=== PATIENT | female | born 2000 | race Asian ===

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

== ENCOUNTER 2019-05-05 06:28 | Emergency (ER) | payer BC ==
[~2019-05-05] VITALS: Ht 157.5 cm; Wt 54.4 kg
[2019-05-05 06:33] VITALS: BP 119/79
--- NOTE | 2019-05-05 06:53 | NUR ---
DR. IRWIN AT BEDSIDE FOR EVAL.
[2019-05-05] MEDS ORDERED: KETOROLAC TROMETHAMINE INJ 60 MG/2 ML VIAL IM ONE (07:00)
[2019-05-05] MEDS ORDERED: KETOROLAC TROMETHAMINE INJ 30 MG/ML VIAL ONE (07:02)
== END 2019-05-05 07:14 | disposition home or self-care (01) ==
LOC: ER 06:29
DX: J06.9 Acute upper respiratory infection, unspecified (principal)
CPT/HCPCS: 96372; 99283; J1885

== ENCOUNTER 2019-08-08 11:12 | Outpatient (CLI) | payer BC | END 2019-08-08 23:59 | disposition home or self-care (01) | LOC: LAB 11:12 | PROVIDERS: ATTEND Family Medicine | DX: Z11.59 Encounter for screening for other viral diseases (principal) | CPT/HCPCS: 36415; 86317 ==

== ENCOUNTER 2020-03-15 13:36 | Emergency (ER) | payer BC ==
[~2020-03-15] VITALS: Ht 157.5 cm; Wt 54.4 kg
[2020-03-15 13:45] VITALS: BP 126/74
--- NOTE | 2020-03-15 14:38 | NUR ---
Patient discharged to home in stable condition. Written and verbal after care instructions given. Patient verbalizes understanding of instruction. Rx provided, explained medication administration. No distress noted.
== END 2020-03-15 14:40 | disposition home or self-care (01) ==
LOC: ER 13:40
DX: B37.3 Candidiasis of vulva and vagina (principal)
CPT/HCPCS: 82962-TC

== ENCOUNTER 2020-03-18 12:16 | Outpatient (CLI) | payer BC | END 2020-03-18 23:59 | disposition home or self-care (01) | LOC: LAB 12:16 | PROVIDERS: ATTEND Family Medicine | DX: R21 Rash and other nonspecific skin eruption (principal) | CPT/HCPCS: 86694; 86695; 86696 ==

== ENCOUNTER 2020-07-14 09:41 | Outpatient (CLI) | payer BC ==
[2020-07-14 10:29] LABS: BASOPHILS % (AUTO) 0.6 % (0.0-2.0); EOSINOPHILS % (AUTO) 2.2 % (0.0-6.0); HEMATOCRIT 41 % (33-45); HEMOGLOBIN 13.5 g/dL (11.5-14.8); LYMPHOCYTES # (AUTO) 1.8 /CMM (0.8-4.8); LYMPHOCYTES % (AUTO) 23.1 % (20.0-44.0); MEAN CORPUSCULAR HGB CONC 33 g/dl (31.0-36.0); MEAN CORPUSCULAR VOLUME 89 fL (82-100); MONOCYTES # (AUTO) 0.4 /CMM (0.1-1.30); MONOCYTES % (AUTO) 5.1 % (2.0-12.0); NEUTROPHILS # (AUTO) 5.3 /CMM (1.8-8.9); PLATELET COUNT (AUTO) 296 /CMM (150-450); RED BLOOD CELL COUNT(AUTO) 4.62 MIL/uL (4.0-5.2); WHITE BLOOD COUNT (AUTO) 7.7 K/uL (4.3-11.0)
[2020-07-14 10:42] LABS: ALBUMIN 4.4 g/dL (3.4-5.0); BILIRUBIN,TOTAL 0.5 mg/dL (0.2-1.0); CALCIUM, SERUM 8.8 mg/dL (8.5-10.1); CREATININE 0.7 mg/dL (0.6-1.3); TOTAL PROTEIN, SERUM 7.7 g/dL (6.4-8.2)
[2020-07-14 12:36] LABS: THYROID STIMULATING HORMONE 1.767 uIU/mL (0.358-3.74)
== END 2020-07-14 23:59 | disposition home or self-care (01) ==
LOC: LAB 09:41
PROVIDERS: ATTEND Family Medicine
DX: Z11.1 Encounter for screening for respiratory tuberculosis (principal); Z00.01 Encounter for general adult medical examination with abnormal findings
CPT/HCPCS: 36415; 80053-TC; 80061-TC; 84443-TC; 85025-TC; 86480

== ENCOUNTER 2021-09-09 10:59 | Emergency (ER) | payer SELFPAY ==
[~2021-09-09] VITALS: Ht 157.5 cm; Wt 55.9 kg
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
--- NOTE | 2021-09-09 11:40 | NUR ---
AT BED SIDE
--- NOTE | 2021-09-09 12:27 | NUR ---
URINE SAMPLE FOR TEST SENT TO LAB
[2021-09-09] MEDS ORDERED: ACETAMINOPHEN ES 500 MG TABLET PO ONE (12:30)
[2021-09-09] MEDS ORDERED: ACETAMINOPHEN ES 500 MG TABLET ONE (12:46)
--- NOTE | 2021-09-09 13:28 | NUR ---
THE PATIENT IS TAKEN TO CT VIA [facility]
[2021-09-09] MEDS ORDERED: IV NS 0.9% 250 ML IV ONE (13:33)
[2021-09-09] MEDS ORDERED: CT SWABBABLE VALVE TRANS SET 1 EA INFUS.SET MC ONE (13:33)
[2021-09-09] MEDS ORDERED: IOHEXOL-300 100 ML VIAL IV ONE (13:33)
[2021-09-09] MEDS ORDERED: IBUP-1955 PO (15:06)
[2021-09-09] MEDS ORDERED: CYCL10TA9 PO (15:06)
--- NOTE | 2021-09-09 15:15 | NUR ---
IV removed. Catheter intact and site benign. Pressure and 4x4 applied to site. No bleeding noted.Patient discharged to home in stable condition. Written and verbal after care instructions given. Patient verbalizes understanding of instruction.
[2021-09-09 15:28] VITALS: BP 120/80
[2021-09-09] MEDS ORDERED: KETOROLAC TROMETHAMINE INJ 30 MG/ML VIAL IV ONE (15:30)
== END 2021-09-09 15:15 | disposition home or self-care (01) ==
LOC: ER 11:10
DX: R51.9 Headache, unspecified (principal); R10.84 Generalized abdominal pain; V49.49XA Driver injured in collision with other motor vehicles in traffic accident, initial encounter; Y93.89 Activity, other specified; Y92.413 State road as the place of occurrence of the external cause; Y99.8 Other external cause status
CPT/HCPCS: 70450; 71260; 72125; 74177; 84703; 99285; J7050; Q9967

== ENCOUNTER → 2022-09-02 | Emergency (ER) | payer BC ==
[~2022-09-02] VITALS: Ht 160 cm; Wt 56.7 kg
[~2022-09-02] MED LIST: CARI350T PO; CARISOPRODOL 350 MG TABLET ONE; CARISOPRODOL 350 MG TABLET PO ONE; CYCL10TA9 PO; HYDR-3972 PO; HYDR-3976 PO; HYDR-3980 PO; HYDROCODONE/APAP 5/325MG TABLET ONE; HYDROCODONE/APAP 5/325MG TABLET PO ONE; IBUP-1955 PO; IBUP-1957 PO; predniSONE 20 MG TABLET ONE; predniSONE 50 MG TABLET PO ONE
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
--- NOTE | 2022-09-02 02:19 | NUR ---
DR AALIYAH MOBLEY AT PT'S BEDSIDE
--- NOTE | 2022-09-02 02:35 | NUR ---
PT SIGNED WAIVER FORM, VERBALIZED UNDERSTANDING. PARADI OPERATOR AWARE
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
--- NOTE | 2022-09-02 02:54 | NUR ---
PT TAKEN TO CT VIA [facility]
[2022-09-02 05:05] VITALS: BP 121/74
--- NOTE | 2022-09-02 05:05 | NUR ---
Patient discharged to home in stable condition. RX Written and verbal after care instructions given. Patient verbalizes understanding of instruction.
== END | disposition home or self-care (01) ==
LOC: ER 01:43
DX: S13.4XXA Sprain of ligaments of cervical spine, initial encounter (principal); S29.012A Strain of muscle and tendon of back wall of thorax, initial encounter; S20.213A Contusion of bilateral front wall of thorax, initial encounter; V89.2XXA Person injured in unspecified motor-vehicle accident, traffic, initial encounter; Y93.89 Activity, other specified; Y92.89 Other specified places as the place of occurrence of the external cause; Y99.8 Other external cause status
CPT/HCPCS: 70450-TC; 71045-TC; 72125-TC; 72128-TC

== ENCOUNTER 2023-09-20 19:07 | Emergency (ER) | payer BC ==
[~2023-09-20] VITALS: Ht 160 cm; Wt 59.4 kg
[~2023-09-20 19:07] MED LIST changes: -CARISOPRODOL 350 MG TABLET ONE; -CARISOPRODOL 350 MG TABLET PO ONE; -HYDR-3972 PO; -HYDR-3976 PO; -HYDROCODONE/APAP 5/325MG TABLET ONE; -HYDROCODONE/APAP 5/325MG TABLET PO ONE; -predniSONE 20 MG TABLET ONE; -predniSONE 50 MG TABLET PO ONE
[2023-09-20 19:41] LABS: BASOPHILS % (AUTO) 0.3 % (0.0-2.0); EOSINOPHILS % (AUTO) 0.3 % (0.0-6.0); HEMATOCRIT 40 % (33-45); HEMOGLOBIN 13.5 g/dL (11.5-14.8); LYMPHOCYTES # (AUTO) 0.4 K/uL (0.8-4.8); MEAN CORPUSCULAR HEMOGLOBIN 29 PG (26.0-33.0); MEAN CORPUSCULAR HGB CONC 34 g/dl (31.0-36.0); MEAN CORPUSCULAR VOLUME 87 fL (82-100); MONOCYTES # (AUTO) 0.6 K/uL (0.1-1.30); MONOCYTES % (AUTO) 8.8 % (2.0-12.0); NEUTROPHILS # (AUTO) 5.9 K/uL (1.8-8.9); NEUTROPHILS % (AUTO) 84.6 % (43.0-81.0); PLATELET COUNT (AUTO) 204 K/uL (150-450); RED BLOOD CELL COUNT(AUTO) 4.65 MIL/uL (4.0-5.2); RED CELL DISTRIBUTION WIDTH 12.9 % (11.5-15.0)
[2023-09-20] MEDS ORDERED: ONDANSETRON HCL/PF 4 MG/2 ML VIAL ONE (19:57)
[2023-09-20] MEDS ORDERED: MORPHINE SULFATE INJ 2 MG/ML DISP.SYRIN ONE (19:57)
[2023-09-20] MEDS ORDERED: FAMOTIDINE/PF INJ 20 MG/2 ML VIAL IV ONE (19:57)
[2023-09-20 19:59] LABS: ALBUMIN 4.4 g/dL (3.4-5.0); BILIRUBIN,DIRECT 0.3 mg/dL (0.0-0.2); BILIRUBIN,TOTAL 1.3 mg/dL (0.2-1.0); CALCIUM, SERUM 8.4 mg/dL (8.5-10.1); CREATININE 0.7 mg/dL (0.6-1.3); POTASSIUM 3.4 mmol/L (3.5-5.1); TOTAL PROTEIN, SERUM 7.7 g/dL (6.4-8.2)
[2023-09-20] MEDS: ONDANSETRON HCL/PF 4 MG/2 ML VIAL IVP ONE (20:00)
[2023-09-20] MEDS: IV NS 0.9% 1,000 ML BAG IV ONE (20:01)
[2023-09-20] MEDS: MORPHINE SULFATE INJ 2 MG/ML DISP.SYRIN IV ONE (20:05)
[2023-09-20] MEDS: FAMOTIDINE/PF INJ 20 MG/2 ML VIAL IV ONE (20:08)
[2023-09-20 20:30] LABS: APPEARANCE,URINE Clear (CLEAR); BILIRUBIN,URINE Negative (NEGATIVE); BLOOD, URINE Trace-lysed Ery/uL (NEGATIVE); COLOR,URINE LIGHT YELLOW (YELLOW); KETONES,URINE >=160 mg/dL (NEGATIVE); LEUKOCYTE ESTERASE ,URINE Small (NEGATIVE); NITRITE, URINE Negative (NEGATIVE); PH,URINE 6.5 (5.0-8.0); PROTEIN,URINE Negative (NEGATIVE); UGLUCOSE Negative (NEGATIVE); UROBILINOGEN,URINE 0.2 EU/dL (0.2)
[2023-09-20 20:31] LABS: PREGNANCY TEST URINE QUAL NEGATIVE (NEGATIVE)
[2023-09-20 20:38] LABS: ADD URINE CULTURE YES; BACTERIA,URINE Few /HPF (None Seen); RBC,URINE 0-2 /HPF (0-2); SQUAMOUS EPITHELIAL CELL,UR Few /HPF (None Seen)
[2023-09-20] MEDS ORDERED: ONDA4TAB5 PO (21:33)
[2023-09-20] MEDS ORDERED: IBUP-1953 PO (21:33)
[2023-09-20] MEDS ORDERED: FAMO40TA7 PO (21:33)
[2023-09-20 21:39] VITALS: BP 122/69; TEMP 98.7; O2SAT 98
== END 2023-09-20 21:43 | disposition home or self-care (01) ==
LOC: ER 19:09
DX: A08.4 Viral intestinal infection, unspecified (principal); R10.2 Pelvic and perineal pain; Z79.899 Other long term (current) drug therapy
CPT/HCPCS: 99285; 74176; 96374; 96375; 96361; 85025; 80048; 87086; 83690; 80076; 84703; 81001; 36415; J3490; J2405; J2270